=== PATIENT | male | born 1960 ===

== ENCOUNTER 2020-06-01 10:24 | Observation (INO) ==
[2020-06-01] MEDS ORDERED: CeFAZolin Syr 3,000MG/30 ML 3,000 MG/30 ML SYRINGE IVPB ONE (10:46)
[2020-06-01] MEDS ORDERED: Ringers Solution, Lactated 1,000 ML IVC SCH ×2 (11:00→11:30)
[2020-06-01] MEDS ORDERED: *HR* HYDROcodone/Acet 5/325 mg TABLET PO PRN (11:28)
[2020-06-01] MEDS ORDERED: *HR* HYDROmorphone PF 0.5 MG/0.5 ML SYRINGE IVP PRN (11:28)
[2020-06-01] MEDS ORDERED: Ondansetron 4 MG/2 ML VIAL IVP PRN ×3 (11:28→15:57)
[2020-06-01] MEDS ORDERED: Lidocaine -MPF 2% 2 ML VIAL ONE (12:15)
[2020-06-01] MEDS ORDERED: Ondansetron 4 MG/2 ML VIAL ONE (12:15)
[2020-06-01] MEDS ORDERED: Dexamethasone 4 MG/ML VIAL ONE (12:15)
[2020-06-01] MEDS ORDERED: *HR* Propofol 200 MG/20 ML VIAL IVP ONE (12:15)
[2020-06-01] MEDS ORDERED: *HR* OxyCODONE Immed Rel 5 MG TABLET PO PRN ×2 (12:27→15:57)
[2020-06-01] MEDS ORDERED: ROPIVACAINE/PF/NS 0.25% 1 EACH SYRINGE INTRAART ONE (12:38)
[2020-06-01] MEDS ORDERED: Ropivacaine/PF 0.5% 30 ML VIAL ONE (12:38)
[2020-06-01] MEDS ORDERED: *HR* Midazolam HCl 2 MG/2 ML VIAL ONE (12:40)
[2020-06-01] MEDS ORDERED: *HR* FentaNYL (PF) 100 MCG/2 ML VIAL ONE (12:41)
[2020-06-01] MEDS ORDERED: Bupivacaine 0.5%-Epi 1:200,000 50 ML VIAL ONE ×2 (12:42→15:24)
[2020-06-01] MEDS ORDERED: Lidocaine HCL 4 ML Topical Solution (Laryng-O-Jet Kit Sterile Pak) TP ONE (12:43)
[2020-06-01] MEDS ORDERED: EPHEDrine 50 MG/ML VIAL ONE (13:17)
[2020-06-01] MEDS ORDERED: *HR* PHENYLEPHRINE 1,000 MCG/10 ML SYRINGE IVP ONE (13:26)
[2020-06-01] MEDS ORDERED: *HR* Phenylephrine 10 MG/ML VIAL ONE (13:30)
[2020-06-01] MEDS ORDERED: Acetaminophen IV 1,000 MG/100 ML BAG IVPB ONE (13:47)
[2020-06-01] MEDS ORDERED: *HR* Rocuronium Bromide 50 MG/5 ML VIAL ONE (14:20)
[2020-06-01] MEDS ORDERED: Acetaminophen 325 MG TABLET PO PRN ×2 (15:50→15:57)
[2020-06-01] MEDS ORDERED: Dextrose Gel 15 GM/37.5 ML TUBE PO PRN ×4 (15:52→15:57)
[2020-06-01] MEDS ORDERED: *HR* Dextrose 50 % in Water (Vial) 50 ML VIAL IVP PRN ×2 (15:52→15:57)
[2020-06-01] MEDS ORDERED: D5% in Water 1,000 ML IVC PRN ×2 (15:52→15:57)
[2020-06-01] MEDS ORDERED: ceFAZolin 2,000 MG in Water for inj. (sterile) 10 ML IVP SCH (16:00)
[2020-06-01] MEDS ORDERED: Insulin LISPRO 300 UNITS/3 ML VIAL SUBQ SCH ×2 (16:30)
[2020-06-01] MEDS: carvediloL 6.25 MG TABLET PO SCH (16:50)
[2020-06-01] MEDS ORDERED: *HR* Metformin 500 MG TABLET PO SCH ×2 (17:00)
[2020-06-01] MEDS ORDERED: carvediloL 6.25 MG TABLET PO SCH (17:00)
[2020-06-01] MEDS: Gabapentin 100 MG CAPSULE PO SCH (20:51)
[2020-06-01] MEDS: CeFAZolin 2 GM/120 ML BAG IVPB SCH (20:51)
[2020-06-01] MEDS ORDERED: Gabapentin 100 MG CAPSULE PO SCH (21:00)
[2020-06-02] MEDS: CeFAZolin 2 GM/120 ML BAG IVPB SCH (05:34)
[2020-06-02] MEDS ORDERED: Dextrose Gel 15 GM/37.5 ML TUBE PO PRN ×2 (07:29)
[2020-06-02] MEDS ORDERED: D5% in Water 1,000 ML IVC PRN (07:29)
[2020-06-02] MEDS ORDERED: *HR* Dextrose 50 % in Water (Vial) 50 ML VIAL IVP PRN (07:29)
[2020-06-02 08:07] LABS: Basophils % 0.1 %; Hematocrit 39.8 % (37.5-50.1); Hemoglobin 13.2 g/dL (12.9-16.9); Immature Granulocytes % 0.5 % (0-4); Lymphocytes # 1.1 K/mcL (0.6-4.6); Lymphocytes % 8.6 %; Mean Corpuscular HGB Conc 33.2 g/dL (31.6-35.5); Mean Corpuscular Volume 84.5 fL (83.0-100.0); Monocytes # 0.8 K/mcL (0.0-1.3); Monocytes % 6.5 %; Neutrophils # 10.9 K/mcL (1.6-8.9); Platelet Count 174 K/mcL (140-400); Red Blood Count 4.71 M/mcL (4.19-5.50); Red Cell Distribution Width 14.6 % (11.5-14.5); Segmented Neutrophils % 84.3 %; White Blood Count 12.9 K/mcL (4.3-11.1)
[2020-06-02] MEDS: Insulin LISPRO 300 UNITS/3 ML VIAL SUBQ SCH ×3 (08:28→17:08)
[2020-06-02] MEDS: lisinopriL 20 MG TABLET PO SCH (08:28)
[2020-06-02] MEDS: carvediloL 6.25 MG TABLET PO SCH ×2 (08:28→17:08)
[2020-06-02] MEDS: Gabapentin 100 MG CAPSULE PO SCH ×3 (08:28→20:46)
[2020-06-02 08:49] LABS: Alanine Aminotransferase 20 Units/L (7-52); Albumin 3.5 g/dL (3.5-5.7); Albumin/Globulin Ratio 1.3 (1.1-2.2); Alkaline Phosphatase 66 Units/L (34-104); Aspartate Amino Transferase 22 Units/L (13-39); BUN/Creatinine Ratio 17 (6-26); Bilirubin,Indirect 0.4 mg/dL (0.0-1.0); Bilirubin,Total 0.4 mg/dL (0.3-1.0); Blood Urea Nitrogen 16 mg/dL (6-20); Calcium 8.5 mg/dL (8.6-10.3); Carbon Dioxide 25 mEq/L (23-29); Chloride 103 mEq/L (98-107); Globulin 2.8 g/dL (2.4-3.5); Glucose 350 mg/dL (70-105); Magnesium 1.7 mg/dL (1.6-2.6); Osmolality,Calculated 297 (280-300); Sodium 136 mEq/L (136-145); Total Protein 6.3 g/dL (6.4-8.9); eGFR For African Americans > 60 (> 60); eGFR For Non-African Americans > 60 (> 60)
[2020-06-02] MEDS ORDERED: lisinopriL 20 MG TABLET PO SCH (09:00)
[2020-06-02] MEDS ORDERED: Insulin LISPRO 300 UNITS/3 ML VIAL SUBQ SCH ×3 (09:00→21:00)
[2020-06-02 09:06] LABS: Estimated Average Glucose 220 mg/dl; Hemoglobin A1C 9.3 %
[2020-06-02] MEDS: cephALEXin 500 MG CAPSULE PO SCH ×2 (11:49→20:46)
[2020-06-02] MEDS: Insulin DETEMIR 100 UNIT/ML X5UNITS SUBQ SCH ×2 (11:50→20:46)
[2020-06-03 06:29] LABS: Basophils % 0.3 %; Eosinophils # 0.2 K/mcL (0.0-0.6); Hematocrit 40.3 % (37.5-50.1); Hemoglobin 13.1 g/dL (12.9-16.9); Immature Granulocytes % 0.3 % (0-4); Lymphocytes # 2.3 K/mcL (0.6-4.6); Lymphocytes % 23.9 %; Mean Corpuscular HGB Conc 32.5 g/dL (31.6-35.5); Mean Corpuscular Hemoglobin 28.8 pg (28.0-33.3); Mean Corpuscular Volume 88.6 fL (83.0-100.0); Mean Platelet Volume 9.2 fL (9.4-12.4); Monocytes # 0.8 K/mcL (0.0-1.3); Monocytes % 8.5 %; Neutrophils # 6.2 K/mcL (1.6-8.9); Platelet Count 148 K/mcL (140-400); Red Blood Count 4.55 M/mcL (4.19-5.50); Red Cell Distribution Width 14.6 % (11.5-14.5); White Blood Count 9.6 K/mcL (4.3-11.1)
[2020-06-03 06:54] LABS: BUN/Creatinine Ratio 18 (6-26); Blood Urea Nitrogen 17 mg/dL (6-20); Carbon Dioxide 26 mEq/L (23-29); Chloride 104 mEq/L (98-107); Potassium 3.6 mEq/L (3.5-5.1); Sodium 139 mEq/L (136-145); eGFR For African Americans > 60 (> 60)
[2020-06-03 06:55] LABS: Calcium 8.5 mg/dL (8.6-10.3); Glucose 250 mg/dL (70-105); Magnesium 1.7 mg/dL (1.6-2.6); Osmolality,Calculated 298 (280-300); eGFR For Non-African Americans > 60 (> 60)
[2020-06-03] MEDS: cephALEXin 500 MG CAPSULE PO SCH ×2 (07:52→21:36)
[2020-06-03] MEDS: carvediloL 6.25 MG TABLET PO SCH ×2 (07:52→17:01)
[2020-06-03] MEDS: lisinopriL 20 MG TABLET PO SCH (07:52)
[2020-06-03] MEDS: Gabapentin 100 MG CAPSULE PO SCH ×3 (07:52→21:36)
[2020-06-03] MEDS: Insulin DETEMIR 100 UNIT/ML X5UNITS SUBQ SCH ×2 (09:48→21:36)
[2020-06-03] MEDS: Insulin LISPRO 300 UNITS/3 ML VIAL SUBQ SCH ×3 (09:48→17:01)
[2020-06-03] MEDS: *HR* Enoxaparin 30 MG/0.3 ML SYRINGE SQ SCH (17:01)
[2020-06-04 05:19] LABS: Basophils % 0.3 %; Eosinophils # 0.2 K/mcL (0.0-0.6); Eosinophils % 2.3 %; Hematocrit 40.1 % (37.5-50.1); Immature Granulocytes % 0.4 % (0-4); Lymphocytes # 2.1 K/mcL (0.6-4.6); Lymphocytes % 23.2 %; Mean Corpuscular HGB Conc 32.4 g/dL (31.6-35.5); Mean Corpuscular Volume 89.5 fL (83.0-100.0); Mean Platelet Volume 9.2 fL (9.4-12.4); Monocytes # 0.9 K/mcL (0.0-1.3); Monocytes % 10.3 %; Neutrophils # 5.7 K/mcL (1.6-8.9); Platelet Count 150 K/mcL (140-400); Red Blood Count 4.48 M/mcL (4.19-5.50); Red Cell Distribution Width 14.6 % (11.5-14.5); Segmented Neutrophils % 63.5 %
[2020-06-04 05:38] LABS: BUN/Creatinine Ratio 19 (6-26); Blood Urea Nitrogen 16 mg/dL (6-20); Calcium 8.5 mg/dL (8.6-10.3); Carbon Dioxide 28 mEq/L (23-29); Chloride 104 mEq/L (98-107); Glucose 253 mg/dL (70-105); Magnesium 1.5 mg/dL (1.6-2.6); Osmolality,Calculated 296 (280-300); Potassium 3.6 mEq/L (3.5-5.1); Sodium 138 mEq/L (136-145); eGFR For African Americans > 60 (> 60); eGFR For Non-African Americans > 60 (> 60)
[2020-06-04] MEDS: *HR* Enoxaparin 30 MG/0.3 ML SYRINGE SQ SCH ×2 (05:48→16:45)
[2020-06-04] MEDS: Insulin LISPRO 300 UNITS/3 ML VIAL SUBQ SCH ×3 (08:14→16:45)
[2020-06-04] MEDS: Insulin DETEMIR 100 UNIT/ML X5UNITS SUBQ SCH ×2 (08:14→20:35)
[2020-06-04] MEDS: Gabapentin 100 MG CAPSULE PO SCH ×3 (08:15→20:35)
[2020-06-04] MEDS: lisinopriL 20 MG TABLET PO SCH (08:15)
[2020-06-04] MEDS: cephALEXin 500 MG CAPSULE PO SCH ×2 (08:15→20:35)
[2020-06-04] MEDS: carvediloL 6.25 MG TABLET PO SCH ×2 (08:15→16:45)
[2020-06-05 03:49] LABS: Basophils # 0.1 K/mcL (0.0-0.2); Basophils % 0.5 %; Eosinophils # 0.2 K/mcL (0.0-0.6); Eosinophils % 2.4 %; Hematocrit 38.7 % (37.5-50.1); Hemoglobin 12.8 g/dL (12.9-16.9); Immature Granulocytes % 0.4 % (0-4); Lymphocytes # 2.4 K/mcL (0.6-4.6); Lymphocytes % 24.5 %; Mean Corpuscular HGB Conc 33.1 g/dL (31.6-35.5); Mean Corpuscular Volume 84.7 fL (83.0-100.0); Mean Platelet Volume 8.7 fL (9.4-12.4); Monocytes # 0.7 K/mcL (0.0-1.3); Monocytes % 7.5 %; Neutrophils # 6.3 K/mcL (1.6-8.9); Platelet Count 168 K/mcL (140-400); Red Blood Count 4.57 M/mcL (4.19-5.50); Red Cell Distribution Width 14.3 % (11.5-14.5); Segmented Neutrophils % 64.7 %; White Blood Count 9.8 K/mcL (4.3-11.1)
[2020-06-05 04:12] LABS: BUN/Creatinine Ratio 21 (6-26); Blood Urea Nitrogen 19 mg/dL (6-20); Calcium 8.8 mg/dL (8.6-10.3); Carbon Dioxide 26 mEq/L (23-29); Chloride 103 mEq/L (98-107); Glucose 241 mg/dL (70-105); Magnesium 1.7 mg/dL (1.6-2.6); Osmolality,Calculated 294 (280-300); Potassium 3.6 mEq/L (3.5-5.1); Sodium 137 mEq/L (136-145); eGFR For African Americans > 60 (> 60); eGFR For Non-African Americans > 60 (> 60)
[2020-06-05] MEDS: *HR* Enoxaparin 30 MG/0.3 ML SYRINGE SQ SCH (05:20)
[2020-06-05] MEDS: Gabapentin 100 MG CAPSULE PO SCH (08:05)
[2020-06-05] MEDS: lisinopriL 20 MG TABLET PO SCH (08:05)
[2020-06-05] MEDS: carvediloL 6.25 MG TABLET PO SCH (08:06)
[2020-06-05] MEDS: Insulin LISPRO 300 UNITS/3 ML VIAL SUBQ SCH ×2 (08:06→12:42)
[2020-06-05] MEDS: cephALEXin 500 MG CAPSULE PO SCH (08:06)
[2020-06-05] MEDS: Insulin DETEMIR 100 UNIT/ML X5UNITS SUBQ SCH (08:09)
[2020-06-05 10:41] VITALS: BP 182/83
== END 2020-06-05 16:00 | disposition home or self-care (01) ==
LOC: SAMDAY 10:24 → 3ANU 10:24
PROVIDERS: ADMIT Podiatrist; ATTEND Podiatrist